=== PATIENT | female | born 1995 | race Caucasian/White ===

== ENCOUNTER 2017-02-10 08:23 | Emergency (ER) | payer BC, OTHER ==
--- NOTE | 2017-02-10 08:28 | EDM.PDOC ---
ED HPI GENERAL MEDICAL PROBLEM - General Chief Complaint: Bite:Animal, Insect Stated Complaint: BUG BITE ON LEFT ARM Time Seen by Provider: 02/10/17 08:41 Source of Information: Reports: Patient History Limitations: Reports: No Limitations - History of Present Illness INITIAL COMMENTS - FREE TEXT/NARRATIVE: Presented with erythema around a bug bite on the Left Forearm. Sustained insect bite 2 days ago and noticed that the surrounding area has been erythematous and slightly tender. Has also been feeling a bit dizzy and weak but denied any fever. Presented to the ER for further evaluation Onset: Gradual Duration: Day(s): (sustained bug bite 2 days ago) Location: Reports: Upper Extremity, Left - Related Data Allergies Allergy/AdvReac Type Severity Reaction Status Date / Time No Known Allergies Allergy Verified 10/21/14 19:48 Home Meds: Home Meds Citalopram Hydrobromide [Celexa] 20 mg PO DAILY 10/21/14 [History] Cephalexin [Keflex] 500 mg PO TID #21 cap 02/10/17 [Rx] Norgestimate-Ethinyl Estradiol [Lajas-Linyah 28 Tablet] 1 each PO DAILY 02/10/17 [History] Social & Family History - Tobacco Use Smoking Status *Q: Never Smoker Second Hand Smoke Exposure: No - Alcohol Use Days Per Week of Alcohol Use: 0 - Recreational Drug Use Recreational Drug Use: No ED ROS GENERAL - Review of Systems Review Of Systems: See Below Constitutional: Reports: No Symptoms HEENT: Reports: No Symptoms Respiratory: Reports: No Symptoms Cardiovascular: Reports: No Symptoms Endocrine: Reports: No Symptoms GI/Abdominal: Reports: No Symptoms : Reports: No Symptoms Musculoskeletal: Reports: Other (Left Forearm -- erythematous, mild warm area around the bug bite ) Skin: Reports: No Symptoms Neurological: Reports: No Symptoms Psychiatric: Reports: No Symptoms Hematologic/Lymphatic: Reports: No Symptoms Immunologic: Reports: No Symptoms ED EXAM, GENERAL - Physical Exam Exam: See Below Exam Limited By: No Limitations General Appearance: Alert, WD/WN, No Apparent Distress Eye Exam: Bilateral Eye: EOMI, PERRL Ears: Normal External Exam Nose: Normal Inspection, Normal Mucosa, No Blood Throat/Mouth: Normal Inspection, Normal Lips, Normal Teeth, Normal Gums, Normal Oropharynx, Normal Voice Head: Atraumatic, Normocephalic Neck: Normal Inspection, Supple, Non-Tender, Full Range of Motion Respiratory/Chest: No Respiratory Distress, Lungs Clear, Normal Breath Sounds, No Accessory Muscle Use Cardiovascular: Normal Peripheral Pulses, Regular Rate, Rhythm, No Edema, No Gallop GI/Abdominal: Normal Bowel Sounds, Soft, Non-Tender, No Organomegaly, No Distention, No Abnormal Bruit Back Exam: Normal Inspection, Full Range of Motion Extremities: Normal Inspection, Normal Range of Motion, Non-Tender, No Pedal Edema, Normal Capillary Refill Psychiatric: Normal Affect, Normal Mood Skin Exam: Warm, Dry, Intact, Normal Color Course - Vital Signs Last Recorded V/S: Last Vital Signs Temp 36.8 C 02/10/17 08:30 Pulse 79 02/10/17 08:30 Resp 16 02/10/17 08:30 BP 118/70 02/10/17 08:30 Pulse Ox 100 02/10/17 08:30 - Orders/Labs/Meds Labs: Laboratory Tests 02/10/17 02/10/17 02/10/17 Range/Units 08:55 08:55 08:55 WBC 4.8 (4.5-12.0) X10-3/uL RBC 4.93 (3.23-5.20) x10(6)uL Hgb 14.0 (11.5-15.5) g/dL Hct 42.4 (30.0-51.3) % MCV 86.0 (80-96) fL MCH 28.4 (27.7-33.6) pg MCHC 33.0 (32.2-35.4) g/dL RDW 12.7 (11.5-15.5) % Plt Count 243 (125-369) X10(3)uL MPV 8.2 (7.4-10.4) fL Neut % (Auto) 59.0 (46-82) % Lymph % (Auto) 30.5 (13-37) % [place] % (Auto) 8.3 (4-12) % Eos % (Auto) 2 (1.0-5.0) % Baso % (Auto) 1 (0-2) % Neut # (Auto) 2.8 (1.6-8.3) # Lymph # (Auto) 1.5 (0.6-5.0) # Lajas # (Auto) 0.4 (0.0-1.3) # Eos # (Auto) 0.1 (0.0-0.8) # Baso # (Auto) 0.0 (0.0-0.2) # Sodium 137 (135-145) mmol/L Potassium 3.8 (3.5-5.3) mmol/L Chloride 106 (100-110) mmol/L Carbon Dioxide 25 (23-29) mmol/L BUN 12 (5-20) mg/dL Creatinine 0.8 (0.6-1.3) mg/dL Est Cr Clr Drug Dosing 117.23 mL/min Estimated GFR (MDRD) > 60 (>60) BUN/Creatinine Ratio 15.0 (9-20) Glucose 97 (80-116) mg/dL Calcium 9.0 (8.6-10.2) mg/dL Total Bilirubin 0.3 (0.1-1.3) mg/dL AST 18 D (5-27) IU/L ALT 17 (14-26) IU/L Alkaline Phosphatase 58 (56-112) IU/L Total Protein 7.0 (6.0-8.0) g/dL Albumin 3.7 (3.5-5.2) g/dL Globulin 3.3 g/dL Albumin/Globulin Ratio 1.1 Urine Color Yellow (YELLOW) Urine Appearance Slightly cloudy (CLEAR) Urine pH 6.0 (5.0-6.5) Ur Specific [place] 1.015 (1.010-1.025) Urine Protein Negative (NEGATIVE) mg/dL Urine Glucose (UA) Normal (NEGATIVE) mg/dL Urine Ketones Negative (NEGATIVE) mg/dL Urine Occult Blood Large H (NEGATIVE) Urine Nitrite Negative (NEGATIVE) Urine Bilirubin Negative (NEGATIVE) Urine Urobilinogen Normal (NEGATIVE) mg/dL Ur Leukocyte Esterase Negative (NEGATIVE) Departure - Departure Time of Disposition: 09:33 Disposition: Home, Self-Care 01 Clinical Impression: Cellulitis Qualifiers: Site of cellulitis: extremity Site of cellulitis of extremity: upper extremity Laterality: left Qualified Code(s): L03.114 - Cellulitis of left upper limb - Discharge Information Prescriptions: Cephalexin [Keflex] 500 mg PO TID #21 cap Instructions: Cellulitis, Adult Referrals: Kellee Payan NP [Primary Care Provider] - Forms: ED Department Discharge Additional Instructions: Follow with PCP Stay hydrated Return if symptoms worsen Call your Physician or Return to Emergency Department if: * Your condition worsens in any way. * You develop fever greater than 100.4. * You have vomitting that does not stop with medications. * You have pain that is not controlled with medications.
[2017-02-10 09:09] VITALS: BP 118/70
== END 2017-02-10 09:25 | disposition home or self-care (01) ==
LOC: FB.ED 08:23
DX: L03.114 Cellulitis of left upper limb (principal); Z79.899 Other long term (current) drug therapy
CPT/HCPCS: 36415; 80053; 81003; 85025; 99282